=== PATIENT | male | born 1980 ===

== ENCOUNTER 2017-07-16 12:20 | Emergency (ER) | payer OTHER ==
[2017-07-16] MEDS ORDERED: Rabies Immune Globulin 10 ML* 150 UNIT/ML VIAL IM ONE (13:49)
[2017-07-16] MEDS ORDERED: Rabies Vaccine, PCEC INJ* 1 ml IM ONE (13:50)
[2017-07-16 14:45] VITALS: BP 111/72
--- NOTE | 2017-07-16 14:46 | ED ---
Bite Injury/Animal - HPI Summary HPI Summary: Patient here after discovering a bat in his bedroom this morning but was unable to capture it. He called the [facility] Department who advised he come to the ED for prophylaxis. No open wounds or lesions. He denies pain, symptoms or open skin lesions pre- or post- bat finding. He has never had a bat bite before. He states he is able to follow up with [facility] and will obtain the following series. Denies any health problems or concerns, allergic to penicillin and denies any daily medications. Otherwise healthy. - History of Current Complaint Chief Complaint: EDGeneral Stated Complaint: BAT EXPOSURE Time Seen by Provider: 07/16/17 12:35 Hx Obtained From: Patient Onset of Injury: Happened hours ago Has Animal Been Immunized?: Unknown Severity Currently: None Pain Intensity: 0 Pain Scale Used: 0-10 Numeric Animal Available for Observation: No Animal Control Notified: No - Risk Factors Infection/Sepsis Risk Factors: Negative - Allergies/Home Medications Allergies/Adverse Reactions: Allergies Allergy/AdvReac Type Severity Reaction Status Date / Time Penicillins [PCN] Allergy Unknown Verified 10/10/16 13:29 Reaction Details Tree Nuts Allergy Altered Verified 10/10/16 13:29 Mental Status PMH/Surg Hx/FS Hx/Imm Hx Previously Healthy: Yes - Immunization History Hx Pertussis Vaccination: No Immunizations Up to Date: Unable to Obtain/Confirm Infectious Disease History: Denies: Traveled Outside the [place] in Last 30 Days - Social History Occupation: Employed Full-time Lives: With Family Alcohol Use: Rare Hx Substance Use: No Substance Use Type: Reports: None Hx Tobacco Use: No Smoking Status (MU): Never Smoked Tobacco Review of Systems Constitutional: Negative Eyes: Negative Cardiovascular: Negative Respiratory: Negative Positive: no symptoms reported, see HPI Musculoskeletal: Negative Skin: Negative Neurological: Negative All Other Systems Reviewed And Are Negative: Yes Physical Exam Triage Information Reviewed: Yes Vital Signs On Initial Exam: Initial Vitals Temp Pulse Resp BP Pulse Ox 98.4 F 74 16 134/69 100 07/16/17 12:30 07/16/17 12:30 07/16/17 12:30 07/16/17 12:30 07/16/17 12:30 Vital Signs Reviewed: Yes Appearance: Positive: Well-Appearing, Well-Nourished Skin: Positive: Warm, Skin Color Reflects Adequate Perfusion Head/Face: Positive: Temporal Artery Tenderness Eyes: Positive: EOMI, GENOVEVA, Conjunctiva Clear Neck: Positive: Supple, No Lymphadenopathy Respiratory/Lung Sounds: Positive: Clear to Auscultation, Breath Sounds Present Cardiovascular: Positive: Normal, RRR, Pulses are Symmetrical in both Upper and Lower Extremities Musculoskeletal: Positive: Strength/ROM Intact Neurological: Positive: Sensory/Motor Intact, Alert, Oriented to Person Place, Time, Speech Normal Psychiatric: Positive: Normal Diagnostics - Vital Signs Vital Signs Temp Pulse Resp BP Pulse Ox 07/16/17 13:06 98.4 F 74 16 134/69 99 07/16/17 12:30 98.4 F 74 16 134/69 100 - Laboratory Lab Statement: Any lab studies that have been ordered have been reviewed, and results considered in the medical decision making process. Bite Injury Course/Dx - Course Course Of Treatment: No known bite. [facility] called and spoke with Jacinda Carvalho at 1:30pm who advised prophylaxis. Rabies vaccine 2.5 (rabavert) given IM in L deltoid. Tdap current. Administered by Josiah Torres. HRIG advised d/t high risk animal (bat) and based on patients weight of 72.57 X .133 = 9.65ml. 3ml given L Vastus Lateralis; 3ml given R Vastus Lateralis; 2 ml given L vastus lateralis; 2ml given R vastus lateralis. No immunoglobulin given into wound d/ t no known or visable bite. Patient denies any pain, symptoms or open wounds. Follow up given for days 3, 7, and 14 as followed by [facility] and WHO protocols. Patient OK with discharge and will follow up accordingly. He will have follow ups at the [facility] as directed. - Diagnoses Differential Diagnosis/HQI/PQRI: Positive: Rabies Exposure, Other - rabies prophylaxis, possible rabies bite Provider Diagnosis: Rabies, need for prophylactic vaccination against Discharge - Discharge Plan Condition: Stable Disposition: HOME Patient Education Materials: Rabies Vaccine (By injection), Rabies Immune Globulin (By injection) Referrals: No Primary Care Phys,NOPCP [Primary Care Provider] - Additional Instructions: Follow up with [facility] [phone] You will need to obtain the series of rabies vaccination which should occur on day 0,3,7, and 14. Follow up with your PCP as well If you develop any symptoms, return to the ED immediately.
== END 2017-07-16 14:45 | disposition home or self-care (01) ==
LOC: ED 12:20
DX: Z20.3 Contact with and (suspected) exposure to rabies (principal)
CPT/HCPCS: 90375; 90471; 90675; 96374; 99281